=== PATIENT | male | born 1940 | race Caucasian/White ===

== ENCOUNTER 2021-02-26 18:46 | Emergency (ER) | payer MEDICARE ==
[~2021-02-26] VITALS: Ht 162.6 cm; Wt 69.0 kg
[2021-02-26 19:39] LABS: HEMATOCRIT 35.4 % (42.0-52.0); HEMOGLOBIN 11.4 gm/dL (14.0-18.0); MCH 29.3 pg (26.0-34.0); MCHC 32.3 g/dL (28.0-37.0); MCV 90.6 fL (80.0-100.0); MPV 7.6 fl. (7.2-11.1); RBC 3.91 mil/uL (4.50-6.00); RDW-CV 16.4 % (10.5-14.5); WBC 9.4 thou/uL (4.0-11.0)
[2021-02-26 19:44] LABS: CREATININE 1.9 mg/dL (0.6-1.3); POTASSIUM 5.5 mmol/L (3.5-5.1)
[2021-02-26 19:48] LABS: TOTAL BILIRUBIN 0.3 mg/dL (<0.1-1.0); TOTAL PROTEIN 6.7 g/dL (6.4-8.2)
[2021-02-26] MEDS ORDERED: ELIQUIS5 M1 PO (20:08)
[2021-02-26] MEDS ORDERED: ALLOPURINOL 10100 M3 PO (20:09)
[2021-02-26] MEDS ORDERED: COREG25 M1 PO (20:09)
[2021-02-26] MEDS ORDERED: SLOW FE142 MG PO (20:09)
[2021-02-26] MEDS ORDERED: OMEPRAZOLE 20 M20 M1 PO (20:09)
[2021-02-26] MEDS ORDERED: VITAMIN B-1100 M2 PO (20:10)
[2021-02-26] MEDS ORDERED: FLOMAX0.4 MG PO (20:10)
[2021-02-26] MEDS ORDERED: FUROSEMIDE 20 M20 M1 PO (20:10)
[2021-02-26] MEDS ORDERED: KEPPRA 500 MG500 MG PO (20:11)
[2021-02-26] MEDS ORDERED: PROSCAR 5MG TABL5 M1 PO (20:11)
[2021-02-26] MEDS ORDERED: SERTRALINE HCL100 MG PO (20:11)
[2021-02-26] MEDS ORDERED: RISPERDAL0.5 MG PO (20:12)
[2021-02-26 21:03] LABS: URINE BILIRUBIN NEGATIVE (Negative); URINE BLOOD NEGATIVE (Negative); URINE CLARITY CLEAR; URINE COLOR YELLOW; URINE GLUCOSE-RANDOM NEGATIVE (Negative); URINE KETONES NEGATIVE (Negative); URINE LEUKOCYTES-REFLEX TRACE (Negative); URINE NITRITE-REFLEX NEGATIVE (Negative); URINE PROTEIN 1+ (Negative); URINE SPECIFIC GRAVITY 1.015 (1.005-1.030); URINE UROBILINOGEN 0.2 E.U./dl (0.2-1.0)
[2021-02-26] MEDS ORDERED: D3-200050 MCG PO (21:11)
[2021-02-26] MEDS ORDERED: LIPITOR 20 MG T20 M1 PO (21:12)
[2021-02-26] MEDS ORDERED: B12 ACTIVE1000 MCG PO (21:12)
[2021-02-26] MEDS ORDERED: PREGABALIN75 MG PO (21:13)
[2021-02-26] MEDS ORDERED: FOLIC ACID1 MG PO (21:13)
[2021-02-26 21:14] LABS: HYALINE CASTS 0-3 Few /LPF (None Seen); SQUAMOUS NONE SEEN /LPF (0-3)
[2021-02-26] MEDS ORDERED: MELATONIN10 M3 PO (21:14)
[2021-02-26] MEDS ORDERED: DESYREL150 MG PO (21:14)
[2021-02-26] MEDS ORDERED: NORVASC10 MG PO (21:14)
[2021-02-26 21:15] LABS: BACTERIA-REFLEX >30 Many /HPF (None Seen); CRYSTALS None Seen /LPF (None Seen); MUCUS None Seen strn/LPF (None Seen); URINE RBC None Seen /HPF (0-2); URINE WBC-REFLEX 0-5 Rare /HPF (0-5)
[2021-02-26] MEDS ORDERED: LORAZEPAM0.5 MG/1 M PO (21:15)
[2021-02-26] MEDS ORDERED: NOVOLIN N100 UNIT/3 SUBQ (21:16)
[2021-02-26] MEDS ORDERED: NOVOLIN N100 UNIT/3 (21:17)
[2021-02-27] MEDS ORDERED: GLUCAGON IM (00:46)
[2021-02-27 01:24] VITALS: BP 121/52
--- NOTE | 2021-02-28 14:11 | EKG ---
[place] [address] ELECTROCARDIOGRAM REPORT Name: MONICA PERRIN Room: [facility]#: [id number] Admission: 02/26/21 Attend Phys: Discharge: 02/27/21 Date of : 42 Date of Service: 02/26/211924 Report #: [id number] THIS REPORT FOR: //name// [facility] ED Test Date: 2021-02-26 Test Time: 19:25:23 Pat Name: MONICA PERRIN Department: Room: Gender: Senior [employer] Payable Specialist: : [id number] Requested By: Claudine Patiño Order Number: [id number] MD: Feliz Mendoza Measurements Intervals Lane Rate: 60 P: 0 LA: 235 QRS: 83 QRSD: 141 T: 53 QT: 479 QTc: 479 Interpretive Statements Sinus rhythm Prolonged LA interval Right bundle branch block No previous ECG available for comparison Electronically Signed On 02-28-2021 14:11:11 BONE TENDER by Feliz Mendoza [email or web address] <ELECTRONICALLY SIGNED> By: Feliz Mendoza MD, [facility] 02/28/21 1411 24 24 Feliz Mendoza MD, FAC /EPI
== END 2021-02-27 01:29 | disposition home or self-care (01) ==
LOC: M.ERS 18:46
PROVIDERS: Personal Emergency Response Attendant
DX: E11.649 Type 2 diabetes mellitus with hypoglycemia without coma (principal); K59.00 Constipation, unspecified; Z79.899 Other long term (current) drug therapy; Z88.9 Allergy status to unspecified drugs, medicaments and biological substances